=== PATIENT | female | born 2000 | race Two or more races ===

== ENCOUNTER 2022-08-14 15:03 | Emergency (ER) | payer SELFPAY ==
[~2022-08-14] VITALS: Ht 154.9 cm; Wt 62.5 kg
[2022-08-14 15:45] LABS: Basophils # (auto) 0 10 ^3/uL (0-0.2); Basophils % (auto) 0.2 % (0.0-2.0); Eosinophils # (auto) 0 10 ^3/uL (0-0.8); Eosinophils % (auto) 0.3 % (0.0-7.0); Hematocrit 39.9 % (36.0-46.0); Hemoglobin 13.6 g/dL (12.2-16.2); Lymphocytes # (auto) 2.2 10 ^3/uL (0.4-5.4); Lymphocytes % (auto) 23.6 % (10.0-50.0); Mean Corpuscular Hemoglobin 32.4 pg (28.0-32.0); Mean Corpuscular Hgb Conc. 34.2 g/dL (32.0-36.0); Mean Corpuscular Volume 94.7 fL (80.0-100.0); Monocytes # (auto) 0.8 10 ^3/uL (0-1.3); Monocytes % (auto) 8.3 % (0.0-12.0); Neutrophils # (auto) 6.3 10 ^3/uL (1.6-8.6); Neutrophils % (auto) 67.6 % (37.0-80.0); Nucleated Red Blood Cells % 0.1 %; Red Blood Cells 4.21 10^6/uL (4.0-5.20); Red Cell Distribution Width 13.1 % (11.8-14.3); White Blood Cell 9.3 10^3/uL (4.4-10.8)
[2022-08-14 16:02] LABS: Albumin 3.9 g/dL (3.4-5.0); Calcium 9.7 mg/dL (8.5-10.1); Magnesium 2.1 mg/dL (1.6-2.6); Potassium 3.7 mmol/L (3.5-5.1)
[2022-08-14 16:05] LABS: BUN/Creatinine Ratio 13.8 (10.0-20.0); Bilirubin, Total 0.4 mg/dL (0.2-1.0); Total Protein 7.3 g/dL (6.4-8.2)
[2022-08-14 17:30] VITALS: BP 117/64
== END 2022-08-14 18:23 | disposition home or self-care (01) ==
LOC: ER 15:03
DX: O26.891 Other specified pregnancy related conditions, first trimester (principal); R00.2 Palpitations; R10.2 Pelvic and perineal pain; Z3A.08 8 weeks gestation of pregnancy
CPT/HCPCS: 36415; 80053; 83735; 84484; 84702; 85025; 85379; 93005

== ENCOUNTER 2022-09-22 14:18 | Emergency (ER) | payer OTHER ==
[~2022-09-22] VITALS: Ht 154.9 cm; Wt 58.7 kg
[2022-09-22 15:37] LABS: Urine Amorphous Crystal FEW /hpf (None Seen); Urine Bacteria NONE SEEN /hpf (None Seen); Urine Blood 1+ /uL (Negative); Urine Specific Gravity 1.019 (1.001-1.035); Urine WBC 7 /hpf (0 - 5); Urine WBC Clumps PRESENT /hpf (None Seen)
[2022-09-22] MEDS ORDERED: CEPH-510 PO (16:16)
[2022-09-22 16:47] VITALS: BP 121/75
== END 2022-09-22 16:17 | disposition home or self-care (01) ==
LOC: ER 14:18
DX: O23.32 Infections of other parts of urinary tract in pregnancy, second trimester (principal); O26.891 Other specified pregnancy related conditions, first trimester; R10.2 Pelvic and perineal pain; N39.0 Urinary tract infection, site not specified; M54.59 Other low back pain; Z3A.14 14 weeks gestation of pregnancy
CPT/HCPCS: 36415; 76801; 81001; 84702